=== PATIENT | male | born 1980 | race Caucasian/White ===

== ENCOUNTER 2018-09-14 05:48 | Day surgery (SDC) | payer OTHER ==
[~2018-09-14] VITALS: Ht 165.1 cm; Wt 102.1 kg
--- NOTE | ~2018-09-14 | OR ---
[facility] [address], [place] [address] Draft DATE OF OPERATION: 09/14/2018 SURGEON: Alon Quick MD PREOPERATIVE DIAGNOSIS: Carpal tunnel syndrome, right. POSTOPERATIVE DIAGNOSIS: Carpal tunnel syndrome, right. PROCEDURE PERFORMED: Carpal tunnel release, right. ANESTHESIA: [place] block with sedation. SPECIMENS AND COMPLICATIONS: There were no specimens or complications. TOURNIQUET TIME: About 25 minutes. WHAT WAS DONE: The patient was taken to the operating room. After anesthesia was induced and the patient gently sedated, the right upper extremity was positioned, prepped and draped in a routine sterile fashion. We then made a volar incision in line with the anterior mid axial line of the 4th ray beginning at the distal wrist flexion crease and extending distally for about 2 cm. Skin was divided sharply. Subcutaneous tissue was bluntly spread. A Heiss retractor was placed and the transverse volar carpal ligament was identified by sweeping the remaining of fat off the volar aspect of the wrist with a small [place] elevator. We then used the tip of a #15 blade to release the transverse carpal ligament. We then used a Ragnell retractor to lift up the distal end of the flap and used a curved tenotomy scissors to release the rest of the median nerve under direct vision. We then replaced the Ragnell into the proximal flap and released the distal 3 cm of the antebrachial fascia. This gave us a complete decompression of a fairly severely compromised median nerve. The wound was gently irrigated and closed in a standard fashion. A sterile dressing was applied. The patient was awakened in recovery room where he arrived in stable condition. Counts were correct and antibiotic protocols were followed. PATIENT NAME: ROYCE GRANT OPERATIVE REPORT DATE OF : 78 REPORT #: [id number] PHYSICIAN: ALON QUICK MD PCP: MARCELO CARRILLO MD REPORT IS CONFIDENTIAL AND NOT TO BE RELEASED WITHOUT AUTHORIZATION [address] [address] Draft MD HUSSEIN Linda/MODL /[id number] Copies: ~ PATIENT NAME: ROYCE GRANT OPERATIVE REPORT DATE OF : 78 REPORT #: [id number] PHYSICIAN: ALON QUICK MD PCP: MARCELO CARRILLO MD REPORT IS CONFIDENTIAL AND NOT TO BE RELEASED WITHOUT AUTHORIZATION
[2018-09-14] MEDS ORDERED: ONDANSETRON ODT8 MG PO (06:21)
[2018-09-14] MEDS ORDERED: CYMBALTA60 MG PO (06:21)
[2018-09-14] MEDS ORDERED: VITAMIN D1000 UNIT PO (06:22)
[2018-09-14] MEDS ORDERED: REMERON45 M1 PO (06:22)
[2018-09-14] MEDS ORDERED: BUSPIRONE HCL15 MG PO (06:22)
--- NOTE | 2018-09-14 08:17 | NUR ---
09/14/18 0817 Tana Lanier 0747 PT PT PACU ALERT AND AWAKE ASKING HOW HIS SURGERY WENT. DENIES PAIN OR NAUSEA. ICE PLACED TO RT ARM.
== END 2018-09-14 08:20 | disposition home or self-care (01) ==
LOC: DS 05:48 → OPS 05:48 → DS 06:45 → OPS 06:45
PROVIDERS: Orthopaedic Surgery
PROC: 01N50ZZ Release Median Nerve, Open Approach (ICD-10-PCS; principal; 2018-09-14 06:45)
DX: G56.01 Carpal tunnel syndrome, right upper limb (principal); F32.9 Major depressive disorder, single episode, unspecified; G47.30 Sleep apnea, unspecified; E66.9 Obesity, unspecified; E78.00 Pure hypercholesterolemia, unspecified; F41.9 Anxiety disorder, unspecified; Z99.89 Dependence on other enabling machines and devices; Z68.37 Body mass index [BMI] 37.0-37.9, adult; Z87.891 Personal history of nicotine dependence
CPT/HCPCS: 01810; J0690; J1885; J2250; J2704; J3010; J7120